=== PATIENT | female | born 1960 | race Native Hawaiian/Other Pacific Islander ===

== ENCOUNTER 2020-06-10 09:42 | Day surgery (SDC) | payer OTHER ==
[~2020-06-10] VITALS: Ht 30.5 cm; Wt 0.5 kg
== END 2020-06-10 10:56 | disposition home or self-care (01) ==
LOC: OR 09:42
PROC: 3E0R33Z Introduction of Anti-inflammatory into Spinal Canal, Percutaneous Approach (ICD-10-PCS; principal; 2020-06-10)
PROC: B01BYZZ Fluoroscopy of Spinal Cord using Other Contrast (ICD-10-PCS; 2020-06-10)
DX: M51.16 Intervertebral disc disorders with radiculopathy, lumbar region (principal)
CPT/HCPCS: J1020